=== PATIENT | male | born 2005 | race Caucasian/White ===

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

== ENCOUNTER 2024-10-11 22:03 | Emergency (ER) | payer OTHER, SELFPAY ==
--- OUTSIDE RECORDS SUMMARY | 2024-10-11 22:05 | XMS_ITS | Clinical Summary ---
Author Organization [facility] Address [address] [place] [address] Care Team Providers Care Food Service Manager Name Role Phone Elsewhere, Pcp Primary Care Provider Unavailabl e Source Comments Patient records contain information from all sites at [facility]. For routine questions regarding patient records, call [phone] during business hours, M-F 8:00 AM - 5:00 PM Central Time. Record requests for emergency care only can be directed to [phone] at any time.[facility] Allergies Active Allergy Reactions Criticality Noted Date Comments Montelukast Other (see comments) 05/17/2016 Hyperactivity, nightmares Medications No known medications Active Problems No known active problems Immunizations Immunization Administration Dates Next Due Influenza, Unspecified 02/06/2013 Social History Tobacco Use Types Packs/Day Years Used Date Smoking Tobacco: Never Passive Smoke Exposure: Never Smokeless Tobacco: Never Tobacco Cessation:Counseling Given: Not Answered Alcohol Use Standard Drinks/Week Comments Never 0 (1 standard drink = 0.6 oz pur e alcohol) Sex and Gender Information Value Date Recorded Sex Assigned at Not on file 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 Gender Identity Not on file Sexual Orientation Not on file Last Filed Vital Signs Vital Sign Reading Time Taken Comments Blood Pressure 105/73 06/19/2024 6:17 PM CDT Pulse 100 06/19/2024 6:17 PM CDT Temperature 37.4 C (99.4 F) 06/19/2024 6:17 PM CDT Respiratory Rate 18 06/19/2024 6:17 PM CDT Oxygen Saturation 96% 06/19/2024 6:17 PM CDT Inhaled Oxygen Concentration - - Weight 76.5 kg (168 lb 11.2 oz) 06/19/2024 6:14 PM CDT Height 185.4 cm (6' 1) 06/19/2024 6:14 PM CDT Body Mass Index 22.26 06/19/2024 6:14 PM CDT Plan of Treatment Health Maintenance Due Date Last Done Comments HIV Screening 2004 Hearing Screening during Well Child Visit 2004 Hepatitis C Screening 2004 TB Screening during Well Child Visit 2004 1 week Well Child Check-Up 2004 1 month Well Child Check-Up 2004 2 month Well Child Check-Up 2004 4 month Well Child Check-Up 2004 9 month Well Child Check-Up 2004 15 month Well Child Check-Up 03/12/2005 18 month Well Child Check-Up 06/10/2005 2 year Well Child Check-Up 12/11/2005 30 month Well Child Check-Up 06/10/2006 3 year Well Child Check-Up 12/11/2006 Well Child Check-Up Completed in Past Year 12/11/2006 5 year Well Child Check-Up 12/11/2008 6 year Well Child Check-Up 12/11/2009 7 year Well Child Check-Up 12/11/2010 8 year Well Child Check-Up 12/12/2011 10 year Well Child Check-Up 12/11/2013 12 year Well Child Check-Up 12/12/2015 13 year Well Child Check-Up 12/11/2016 14 year Well Child Check-Up 12/11/2017 Vision Screening during Well Child Visit 01/10/2018 15 year Well Child Check-Up 12/11/2018 16 year Well Child Check-Up 01/07/2020 17 year Well Child Check-Up 12/11/2020 18 year Well Child Check-Up 12/11/2021 19 year Well Child Check-Up 12/11/2022 20 year Well Child Check-Up 12/12/2023 COVID-19 Vaccine ( season) 2023 Well Child Check-Up ([facility]) 12/12/2023 Influenza Vaccine (#1) 2024 , 01/26/2019, 01/27/2018, Additional history exists Depression Screening (Annual PHQ-2) 04/12/2024 DTaP,Tdap,and Td Vaccines (7 - Td or Tdap) 11/06/2026 11/06/2016, 06/10/2009, 04/20/2005, Additional history exists Hepatitis B Vaccines Completed 2004, 2004, 2004 Pneumococcal vaccine (0-49 years) Aged Out 04/20/2005, 2004, 2004, Additional history exists No longer eligible based on patient's age to complete this topic IPV Vaccines Completed 06/10/2009, 11/2004, 2004, Additional history exists HPV Vaccines Completed 11/06/2016, 01/29/2014 Meningococcal Vaccine Completed 06/26/2020, 017 Insurance [facility] [employer] [place] [id number] Care Teams Food Service Manager Relationship Specialty Start Date End Date Elsewhere, Pcp PCP - General Internal Medicine 05/06/22
--- OUTSIDE RECORDS SUMMARY | 2024-10-11 22:05 | XMS_ITS | Patient Health Record ---
Author Organization [facility] Address [address] [place] [address] Care Team Providers Care Hub Inventory Specialist Name Role Phone Jacques Flores DO Primary Care Provider [phone] NEMESIO GUTIERREZ, [facility] [phone] Allergies Allergen (clinical drug ingredient) Drug/Non Drug Allergy documented on EMR Reaction Allergy Type Onset Date Status montelukast Singulair Night terrors Drug Allergy A ctive Reason For Referral No Information Medications Medication SIG (Take, Route, Frequency, Duration) Notes Start Date End Date Status Multivitamin Active Betamethasone Dipropionate 0.05 % apply to retracted prepuce or directly on adhesions and inflammation Externally twice daily; Duration: 4 Weeks 08/31/2017 Active Problems Problem Type SNOMED Code ICD Code Onset Dates Problem Status W/U Status Risk Notes Problem Penile pain (353743086) Penile pain (N48.89) Active confirmed Problem Left varicocele (I86.1) Active confirmed 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
[2024-10-11 22:10] VITALS: BP 143/72; PULSE 84; RESP 18; TEMP 36.9; O2SAT 99; BMI 23.1
--- NOTE | 2024-10-11 22:15 | CRLHL7_ITS ---
For Patients: As a result of the Century Cures Act, medical imaging exams and procedure reports are released immediately into your electronic medical record. You may view this report before your referring provider. If you have questions, please contact your health care provider. INDICATION: Nontraumatic knee pain. TECHNIQUE: Right knee 3 view. COMPARISON: Right knee radiographs 02/20/2019. FINDINGS: Bones: No acute fracture or suspicious bone lesion. Alignment is normal. Joints: Joint spaces are preserved. No significant joint effusion. Soft tissues: There is prepatellar soft tissue swelling. IMPRESSION: Prepatellar soft tissue swelling. No fracture identified. Dictated by Alena Villatoro MD @ 10/11/2024 11:18:33 PM (Electronically Signed)
--- OUTSIDE RECORDS SUMMARY | 2024-10-11 23:19 | XMS_ITS | Patient Health Record ---
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
--- NOTE | 2024-10-11 23:29 | ED_ITS ---
HPI - General Adult General Date Seen: 10/11/24 Chief complaint: Extremity Pain/Injury, Lower Stated complaint: R knee pain Time Seen by Provider: 10/11/24 23:03 History of Present Illness HPI narrative: This is a very pleasant generally healthy 19-year-old male. He is fully vaccinated. He has no long-term medical conditions or diabetes or immunosuppression. He has had 1 episode of a skin infection (cellulitis) last year that was successfully treated with antibiotics. He presents to the ER tonight accompanied by his father. He started developing redness and pain involving the anterior portion of his right knee this evening. 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 He does do a lot of work where he is on his hands and knees. He has no known injury to his knee. No recent fall. No bumping. No scratch. No foreign body. Related Data Home Medications ?Medication ?Instructions ?Recorded ?Confirmed No Known Home Medications 10/11/24 0706/06 Allergies Allergy/AdvReac Type Severity Reaction Status Date / Time montelukast Allergy Intermediate Nightmare Verified 10/11/24 22:14 [facility] Family History (Updated 04/08/22 @ 14:14 by Savana Casillas ~ PSR) Mother Celiac disease Social History Smoking Status: Never smoker Second hand tobacco smoke exposure: No How often do you have a drink containing alcohol: never AUDIT-C Alcohol total score: 0 Non-prescribed substance use: denies use Exam Narrative: Exam Narrative: Constitutional: Appears well-developed and well-nourished. Polite and conversant. Non-toxic appearing. HENT: Head: Atraumatic. No signs of injury. Nose: No nasal discharge. Mouth/Throat: Mucous membranes are moist. Pharynx is normal. Tonsils symmetric. Uvula midline. Airway patent. Eyes: Conjunctivae normal and EOM are normal. Pupils are equal, round, and reactive to light. Right eye exhibits no discharge. Left eye exhibits no discharge. No icterus. Neck: Normal range of motion. Neck supple. No adenopathy. No stridor. Cardiovascular: Normal rate and regular rhythm. No murmur heard. No murmurs, rubs, or gallops. Brisk capillary refill Pulmonary/Chest: Effort normal. No stridor. No respiratory distress. No wheezes.No rhonchi. No rales. No retractions. Musculoskeletal: Upper extremities are normal. He has some abrasions on his dorsal elbow. No signs of swelling there. Left lower extremity: Normal Right lower extremity: Hip, thigh, femur, quad, hamstring are normal. He does have soft tissue swelling anterior and just inferior to the patella. There is a little bit of swelling there but no fluctuance. There is warmth and redness roughly 5 x 6 cm in size. No ascending lymphangitis. He is able to flex his knee to almost 90? but limited by anterior pain. Medial is nontender. Lateral is nontender. Posterior nontender. Lower leg, martino, gastroc, Achilles, ankle, foot are normal. Neurological: Alert. Normal strength. No cranial nerve deficit or sensory deficit. Coordination normal. GCS eye subscore is 4. GCS verbal subscore is 5. GCS motor subscore is 6. Skin: Skin is warm. No rash noted. Const: Vital Signs, click to edit/add: Vital Signs - 24 hr 10/11/24 22:10 Temperature 98.4 F Pulse Rate [Right Pulse Oximeter] 84 Respiratory Rate 18 Blood Pressure [Ri ght Upper Arm] 143/72 H Pulse Oximetry 99 Oxygen Delivery Me thod Room Air Course Vital Signs Vital signs: Initial Vital Signs Temperature 98.4 F 10/11/24 22:10 Temperature Source Temporal Artery Scan 10/11/24 22:10 Pulse Rate 84 10/11/24 22:10 Respiratory Rate 18 10/11/24 22:10 Blood Pressure 143/72 H 10/11/24 22:10 Blood Pressure Mean 95 10/11/24 22:10 Blood Pressure Position Sitting 10/11/24 22:10 Pulse Oximetry 99 10/11/24 22:10 Oxygen Delivery Method Room Air 10/11/24 22:10 Vital Signs Temperature 98.4 F 10/11/24 22:10 Pulse Rate 84 10/11/24 22:10 Respiratory Rate 18 10/11/24 22:10 Blood Pressure 143/72 H 10/11/24 22:10 Pulse Oximetry 99 10/11/24 22:10 Oxygen Delivery Method Room Air 10/11/24 22:10 Temperature 98.4 F 10/11/24 22:10 Pulse Rate 84 10/11/24 22:10 Respiratory Rate 18 10/11/24 22:10 Blood Pressure 143/72 H 10/11/24 22:10 Pulse Oximetry 99 10/11/24 22:10 Oxygen Delivery Method Room Air 10/11/24 22:10 Medical Decision Making MDM Narrative Medical decision making narrative: Very pleasant generally healthy 19-year-old male presenting to the ER today with onset of atraumatic right anterior knee redness, pain, swelling that began tonight. Clinical exam is consistent with prepatellar bursitis. This is not a septic joint or gouty joint because this is clearly in the soft tissue anterior to the patella and not involving the knee joint itself. There is a little bit of swelling there are isolated to the soft tissue anterior to the patella but no evidence for any joint effusion. X-rays were obtained by nurses at triage and are negative for any acute fracture, arthritic change, or any radiopaque foreign body in the skin. X-rays do confirm the prepatellar soft tissue swelling which is appreciable on exam. Will treat the prepatellar bursitis with rest, ice, elevation, NSAIDs. Also had cephalexin for potential infectious cause. Discussed potential course of illness, indications for return to the ER, need for follow-up, and precautions with the patient and his father. They verbalized understanding. Prescription for Inst[facility] cephalexin 500 q.i.d. for 7 days. Imaging Data XR knee: Attestation: I have reviewed the pertinent imaging results. My impression: No acute fracture or dislocation Radiologist's impression: IMPRESSION: Prepatellar soft tissue swelling. No fracture identified. Discharge Plan Discharge Clinical Impression: Bursitis, prepatellar, right Patient Disposition: Home, Self-Care Condition: Stable Instructions: Knee Bursitis (ED) Additional Instructions: As we discussed, please try to rest her knee as much as possible. Avoid activities that require a lot of bending her knee and activities that require crawling around on your knees. Please use ibuprofen 600 mg 3 times daily as needed for pain and to help reduce swelling. You can use an ice pack for 20 minutes every 3-4 hours to help reduce pain and swelling. Please start on the antibiotic tonight and take it 4 times daily for 7 days. Monitor the red area. If it is getting larger or if you have other concerning symptoms such as fever chills, weakness, or spreading redness up and down your leg, please return to the ER right away. If your knee is not completely healed by next Wednesday, please call [phone] to schedule an ER follow-up appointment with the [facility]. Prescriptions: No Action No Known Home Medications Follow Up/Referrals: Alexandr Mena MD [Primary Care Provider, Family Practice] Stand Alone Forms: [employer] Info Instructions
== END 2024-10-11 23:48 | disposition home or self-care (01) ==
PROVIDERS: Emergency Provider Emergency Medicine; PCP Family Medicine
DX: M70.41 Prepatellar bursitis, right knee (principal)
CPT/HCPCS: 73562; 99282; 99283; 99284